=== PATIENT | female | born 1990 | race Caucasian/White ===

== ENCOUNTER 2018-09-04 15:51 | Emergency (ER) | payer OTHER ==
[~2018-09-04] VITALS: Ht 157.5 cm; Wt 62.1 kg
[2018-09-04] MEDS ORDERED: ADDERALL 20 MG20 MG (16:30)
== END 2018-09-04 22:26 | disposition home or self-care (01) ==
LOC: ER 15:51
DX: K58.9 Irritable bowel syndrome, unspecified (principal)